=== PATIENT | female | born 1935 | race Caucasian/White ===

== ENCOUNTER 2019-07-22 07:36 | Observation (INO) | payer OTHER, MEDICARE ==
[2019-07-22] MEDS ORDERED: DIPHENHYDRAMINE 50 MG/ML VIAL ONE (07:57)
[2019-07-22] MEDS ORDERED: NA CHLORIDE 0.9% 1,000 ML ONE (07:57)
[2019-07-22] MEDS ORDERED: ONDANSETRON 4 MG/2 ML VIAL ONE (07:57)
[2019-07-22] MEDS ORDERED: MECLIZINE HCL 12.5 MG TAB ONE (07:57)
[2019-07-22 08:13] LABS: Hematocrit 36.8 % (36.0-45.0); RBC Red Blood Cell Count 3.76 M/uL (3.86-4.86)
[2019-07-22 08:54] LABS: Urine Blood NEGATIVE (NEG); Urine Glucose 2+ (NEG); Urine Protein NEGATIVE (NEG); Urine Specific Gravity 1.015 (1.005-1.030); Urine pH 7.5 (5.0-7.0)
[2019-07-22 09:07] LABS: ALT/SGPT 17 U/L (12-78); AST/SGOT 20 U/L (15-37); Alkaline Phosphatase 51 U/L (45-117); BUN Blood Urea Nitrogen 20 mg/dL (7-18); Bicarbonate 22 mmol/L (21-32); Bilirubin Total 0.5 mg/dL (0.2-1.0); Glucose Level 278 mg/dL (74-106); Lipase 20 U/L (73-393); Potassium 3.3 mmol/L (3.5-5.1); Protein, Total 6.1 g/dL (6.4-8.2); Sodium Level 137 mmol/L (136-145)
--- NOTE | 2019-07-22 09:44 | RAD REPORT ---
EXAM DESCRIPTION: CT - Head Brain Wo Cont - 07/22/2019 9:36 am CLINICAL HISTORY: DIZZINESS COMPARISON: Head Brain Wo Cont dated 12/23/2016; Chest Single View dated 12/31/2016 TECHNIQUE: Axial 5 mm thick images of the head were obtained without IV contrast. All CT scans are performed using dose optimization technique as appropriate and may include automated exposure control or mA/KV adjustment according to patient size. FINDINGS: No intracranial hemorrhage, mass, edema or shift of mid-line structures. No acute infarcti on changes seen. No cortical edema or sulcal effacement. Patient has mild for age atrophy and chronic ischemic change. Ventricles are in proportion to volume loss. Mastoid air cells are clear. Partially imaged right maxillary sinus is completely opacified. There is mucosal thickening or fluid changes in the sphenoid sinus. No acute bony findings. IMPRESSION: Mild atrophy and chronic ischemic change with no acute intracranial finding identifiable . Chronic ischemic change can mask nonhemorrhagic acute CVA. Follow-up MR imaging can be performed as c linical findings warrant. Complete opacification of the right maxillary sinus with mucosal thickening and possible fluid in the left side of the sphenoid sinus.
--- NOTE | 2019-07-22 14:10 | ER ---
Nurse's Notes [facility] Name: Mona Berg Age: 83 yrs Sex: Female : 1935 Arrival Date: 07/22/2019 Time: 07:39 Bed 7 Private MD: Diagnosis: Dehydration Presentation: 07/22 07:32 Presenting complaint: EMS states: dizziness started this morning around 0500 after sv getting up and going to the bathroom. c/o left occipital headache that started 2 days ago, goes away with Aleve. BP 156/76 [id number]-348. Transition of care: patient was not received from another setting of care. Onset of symptoms was July 22, 2019. Risk Assessment: Do you want to hurt yourself or someone else? Patient reports no desire to harm self or others. Initial Sepsis Screen: Does the patient meet any 2 criteria? No. Patient's initial sepsis screen is negative. Does the patient have a suspected source of infection? No. Patient's initial sepsis screen is negative. Care prior to arrival: Medication(s) given: Normal saline infusion, IV initiated. 20 GA, in the right hand, Glucose check: 348. 07:32 Method Of Arrival: EMS: [facility] sv 07:32 Acuity: ZARIA 2 sv 07:35 Presenting complaint: Patient states: that she had rolled over on to her other side sv while in bed and immediately started feeling dizzy, she had to urinate and got up to the bathroom and was still dizzy, got back in bed and had her call 911 for assistance. Triage Assessment: 07:32 Headache History: The patient has had previous headaches and this one is similar to previous episodes. General: Appears in no apparent distress. uncomfortable, slender, well developed, Behavior is calm, cooperative, appropriate for age. Pain: Denies pain. Neuro: Level of Consciousness is awake, alert, obeys commands, Oriented to person, place, time, situation, Roll Inspector are equal bilaterally Moves all extremities. Full function Speech is normal, Facial symmetry appears normal, Facial symmetry: tongue is midline, Pupils are PERRLA, Reports dizziness, Denies weakness blurred vision numbness. Cardiovascular: Patient's skin is warm and dry. Pulses are palpable in right radial artery and left radial artery Rhythm is sinus rhythm. Respiratory: Airway is patent Respiratory effort is even, unlabored, Respiratory pattern is regular, symmetrical. Derm: Skin is pink, warm \T\ dry. Musculoskeletal: Range of motion: intact in all extremities. Historical: - Allergies: :44 No Known Allergies; sv - Home Meds: 08:30 metformin 1,000 mg oral tab 2 times per day [Active]; metoprolol succinate 50 mg oral sv Tb24 1 tab twice a day [Active]; amlodipine 10 mg oral tab nightly [Active]; Protonix 40 mg Oral TbEC 1 tab once daily [Active]; levothyroxine 150 mcg oral tab once daily [Active]; Klor-Con 10 8mEq PRN Oral daily prn [Active]; Tradjenta 5 mg oral tab 1 tab once daily [Active]; Zenpep 10,000-34,000 -55,000 unit oral cpDR 1 cap 3 times per day [Active]; multivitamin oral cap daily [Active]; B-Complex oral oral [Active]; magnesium oxide 500 mg Oral cap [Active]; allopurinol 100 mg Oral tab 1 tab once daily [Active]; Zofran (as hydrochloride) 8 mg Oral tab Q8H prn [Active]; glimepiride 1 mg Oral tab 1 tab once daily [Active]; diphenoxylate-atropine 2.5-0.025 mg Oral tab Q6H prn diarrhea [Active]; - PMHx: :44 Diabetes - NIDDM; High Cholesterol; Hypertension; Hypothyroidism; stomach CA; sv - PSHx: :44 Cholecystectomy; Appendectomy; Hysterectomy; back sx; Stomach sx-had 3/4 stomach sv removed; - Immunization history:: Flu vaccine is up to date. - Coronavirus screen:: The patient has NOT traveled to [place], [place], or [place] in the past 14 days. Proceed with normal triage process as indicated. The patient has NOT had contact with known/suspected case of Coronavirus? Proceed with normal triage procedures. - Social history:: Patient/guardian denies using alcohol, street drugs, The patient lives with family, Smoking status: Patient reports use of chewing tobacco. - Family history:: not pertinent. - Ebola Screening: : No symptoms or risks identified at this time. Screenin:44 Abuse screen: Denies threats or abuse. Denies injuries from another. Nutritional sv screening: No deficits noted. Tuberculosis screening: No symptoms or risk factors identified. Fall Risk None identified. Assessment: 08:10 Reassessment: Patient appears in no apparent distress at this time. No changes from sv previously documented assessment. Patient and/or family updated on plan of care and expected duration. Pain level reassessed. Patient is alert, oriented x 3, equal unlabored respirations, skin warm/dry/pink. 09:30 Reassessment: Patient appears in no apparent distress at this time. No changes from sv previously documented assessment. Patient and/or family updated on plan of care and expected duration. Pain level reassessed. Patient is alert, oriented x 3, equal unlabored respirations, skin warm/dry/pink. 11:21 Reassessment: Patient appears in no apparent distress at this time. Patient and/or sv family updated on plan of care and expected duration. Pain level reassessed. Patient is alert, oriented x 3, equal unlabored respirations, skin warm/dry/pink. Pt assisted up to the BSC and is c/o dizziness. 12:30 Reassessment: Patient appears in no apparent distress at this time. Patient and/or sv family updated on plan of care and expected duration. Pain level reassessed. Patient is alert, oriented x 3, equal unlabored respirations, skin warm/dry/pink. Assisted up to the BSC. 14:00 Reassessment: Patient appears in no apparent distress at this time. Patient and/or sv family updated on plan of care and expected duration. Pain level reassessed. Patient is alert, oriented x 3, equal unlabored respirations, skin warm/dry/pink. 14:17 Reassessment: Lunch tray given to pt. sv 15:46 Reassessment: Attempted to call report, nurse to call back. sv 16:00 Reassessment: Dr Reynolds at the bedside. sv Vital Signs: 07:37 BP 185 / 85; Pulse 64; Resp 12; Temp 96.8; Pulse Ox 98% ; Weight 54.43 kg; Height 5 ft. sv 2 in. (157.48 cm); Pain 0/10; 08:21 BP 169 / 82; Pulse 63; Resp 12; Pulse Ox 99% ; sv 09:03 BP 140 / 63; Pulse 61; Resp 15; Pulse Ox 98% ; sv 09:43 BP 138 / 68; Pulse 63; Resp 16; Pulse Ox 96% ; sv 10:24 BP 135 / 69; Pulse 59; Resp 14; Pulse Ox 95% ; sv 11:03 BP 136 / 71; Pulse 63; Resp 18; Pulse Ox 95% ; sv 11:45 BP 151 / 76; Pulse 63; Resp 15; Pulse Ox 97% ; sv 12:30 BP 161 / 77; Pulse 68; Resp 17; Pulse Ox 97% ; sv 13:00 BP 176 / 94; Pulse 74; Resp 14; Pulse Ox 99% ; sv 13:49 BP 155 / 79; Pulse 68; Resp 13; Pulse Ox 99% ; sv 14:30 BP 145 / 82; Pulse 76; Resp 15; Pulse Ox 100% ; sv 14:30 BP 130 / 86; Pulse 74; Resp 15; Pulse Ox 100% ; sv 15:00 BP 128 / 69; Pulse 63; Resp 13; Pulse Ox 98% ; sv 16:06 BP 136 / 70; Pulse 69; Resp 18; Temp 97; Pulse Ox 99% ; sv 07:37 Body Mass Index 21.95 (54.43 kg, 157.48 cm) sv NIH Stroke Scale Scores: 07:35 NIHSS Score: 0 sv ED Course: 07:32 Maintain EMS IV. Dressing intact. Site clean \T\ dry. Gauge \T\ site: 20G R hand. sv 07:35 Patient has correct armband on for positive identification. Placed in gown. Bed in low sv position. Call light in reach. Side rails up X2. cafeteria monitor on. Pulse ox on. NIBP on. Door closed. Warm blanket given. Head of bed elevated. 07:39 Patient arrived in ED. iw 07:40 Valentine Yo, MARISA is Primary Nurse. sv 07:42 Triage completed. sv 07:43 Paramjit Guillory MD is Attending Physician. ma2 07:44 Arm band placed on. sv 07:50 ED physician to see patient. sv 08:00 Initial lab(s) drawn, by me, sent to lab. sv 08:10 Awaiting lab results, Awaiting CT Scan. sv 08:59 EKG done, by emergency spill response technician. reviewed by Paramjit Guillory MD. at1 09:39 CT Head Brain wo Cont In Process Unspecified. EDMS 14:06 Curly Reynolds MD is Hospitalizing Provider. ma2 14:21 Awaiting bed assignment, Awaiting: admission orders from Dr Reynolds. sv 16:06 No provider procedures requiring assistance completed. Patient admitted, IV remains in sv place. intact. Administered Medications: 08:05 Drug: NS 0.9% 1000 ml Route: IV; Rate: 1 bolus; Site: right hand; sv 09:00 Follow up: Response: No adverse reaction; IV Status: Completed infusion; IV Intake: sv 1000ml 08:05 Drug: Benadryl 25 mg Route: IVP; Site: right hand; sv 08:50 Follow up: Response: No adverse reaction sv 08:07 Drug: Zofran 4 mg Route: IVP; Site: right hand; sv 08:30 Follow up: Response: No adverse reaction sv 08:07 CANCELLED (Physician Discretion): Benadryl 50 mg IVP once sv 08:08 Drug: Meclizine 50 mg Route: PO; sv 08:50 Follow up: Response: No adverse reaction sv Intake: 09:00 IV: 1000ml; Total: 1000ml. Outcome: 14:05 Discharge ordered by . ma2 14:09 Decision to Hospitalize by Provider. ma2 16:06 Admitted to Tele accompanied by tech, via wheelchair, with chart, Report called to Iris CUNNINGHAM 16:06 Condition: stable 16:06 Instructed on the need for admit. 16:25 Patient left the ED. NIH Stroke Scale - NIH Stroke Score Date: 07/22/2019 Time: 07:35 Total Score = 0 1a. Level of Consciousness (LOC) - 0(Alert) 1b. Level of Consciousness (LOC) (Year \T\ Age) - 0(Both) 1c. LOC Commands (Open \T\ Closes Eyes/Ladle Patcher) - 0(Both) 2. Best Gaze (Lateral Gaze Paresis) - 0(Normal) 3. Visual Field Loss - 0(No visual loss) 4. Facial Palsy - 0(Normal) 5a. Left Arm: Motor (10-second hold) - 0(No drift) 5b. Right Arm: Motor (10-second hold) - 0(No drift) 6a. Left Leg: Motor (5-second hold - always test supine) - 0(No drift) 6b. Right Leg: Motor (5-second hold - always test supine) - 0(No drift) 7. Limb Ataxia (finger/nose \T\ heel/garcia - test with eyes open) - 0(Absent) 8. Sensory Loss (pinprick arms/legs/face) - 0(Normal) 9. Best Language: Aphasia (description/naming/reading) - 0(No aphasia) 10. Dysarthria (speech clarity - read or repeat words) - 0(Normal) 11. Extinction and Inattention (visual/tactile/auditory/spatial/personal) - 0(No abnormality) Initials: sv Signatures: Dispatcher [employer] Valentine Blackman RN RN sv Williams, Irene, RN RN iw Lashawn Lim, research administrator EKG Tat1 Paramjit Guillory MD MD ma2 Corrections: (The following items were deleted from the chart) 09:45 09:43 Pulse 63bpm; Resp 16bpm; Pulse Ox 96%; sv sv 16:07 16:06 BP 136 / 0; Pulse 69bpm; Resp 18bpm; Pulse Ox 99%; Temp 97F; sv sv
--- NOTE | 2019-07-22 14:10 | EDPHYS ---
Physician Documentation [facility] Name: Mona Berg Age: 83 yrs Sex: Female : 1935 Arrival Date: 07/22/2019 Time: 07:39 Bed 7 Private MD: ED Physician Paramjit Guillory HPI: 07/22 10:13 This 83 yrs old Female presents to ER via EMS with complaints of Dizziness, ma2 Headache. 10:13 Onset: The symptoms/episode began/occurred gradually, 1 day(s) ago. Associated signs ma2 and symptoms: Pertinent negatives: ataxia, chest pain, confusion, diaphoresis, seizure. Severity of symptoms: At their worst the symptoms were mild in the emergency department the symptoms are unchanged. The patient has not experienced similar symptoms in the past. did not eat or drink last 24 hrs because she had dental work . Historical: - Allergies: 07:44 No Known Allergies; sv - Home Meds: 08:30 metformin 1,000 mg oral tab 2 times per day [Active]; metoprolol succinate 50 mg oral sv Tb24 1 tab twice a day [Active]; amlodipine 10 mg oral tab nightly [Active]; Protonix 40 mg Oral TbEC 1 tab once daily [Active]; levothyroxine 150 mcg oral tab once daily [Active]; Klor-Con 10 8mEq PRN Oral daily prn [Active]; Tradjenta 5 mg oral tab 1 tab once daily [Active]; Zenpep 10,000-34,000 -55,000 unit oral cpDR 1 cap 3 times per day [Active]; multivitamin oral cap daily [Active]; B-Complex oral oral [Active]; magnesium oxide 500 mg Oral cap [Active]; allopurinol 100 mg Oral tab 1 tab once daily [Active]; Zofran (as hydrochloride) 8 mg Oral tab Q8H prn [Active]; glimepiride 1 mg Oral tab 1 tab once daily [Active]; diphenoxylate-atropine 2.5-0.025 mg Oral tab Q6H prn diarrhea [Active]; - PMHx: 07:44 Diabetes - NIDDM; High Cholesterol; Hypertension; Hypothyroidism; stomach CA; sv - PSHx: 07:44 Cholecystectomy; Appendectomy; Hysterectomy; back sx; Stomach sx-had 3/4 stomach sv removed; - Immunization history:: Flu vaccine is up to date. - Coronavirus screen:: The patient has NOT traveled to [place], [place], or [place] in the past 14 days. Proceed with normal triage process as indicated. The patient has NOT had contact with known/suspected case of Coronavirus? Proceed with normal triage procedures. - Social history:: Patient/guardian denies using alcohol, street drugs, The patient lives with family, Smoking status: Patient reports use of chewing tobacco. - Family history:: not pertinent. - Ebola Screening: : No symptoms or risks identified at this time. ROS: 10:13 Constitutional: Negative for fever, chills, and weight loss. ma2 10:13 All other systems are negative. Exam: 10:13 Constitutional: This is a well developed, well nourished patient who is awake, alert, ma2 and in no acute distress. Head/Face: Normocephalic, atraumatic. Eyes: Pupils equal round and reactive to light, extra-ocular motions intact. Lids and lashes normal. Conjunctiva and sclera are non-icteric and not injected. Cornea within normal limits. Periorbital areas with no swelling, redness, or edema. ENT: Nares patent. No nasal discharge, no septal abnormalities noted. Tympanic membranes are normal and external auditory canals are clear. Oropharynx with no redness, swelling, or masses, exudates, or evidence of obstruction, uvula midline. Mucous membranes moist. Neck: Trachea midline, no thyromegaly or masses palpated, and no cervical lymphadenopathy. Supple, full range of motion without nuchal rigidity, or vertebral point tenderness. No Meningismus. Chest/axilla: Normal chest wall appearance and motion. Nontender with no deformity. No lesions are appreciated. Cardiovascular: Regular rate and rhythm with a normal S1 and S2. No gallops, murmurs, or rubs. Normal PMI, no JVD. No pulse deficits. Respiratory: Lungs have equal breath sounds bilaterally, clear to auscultation and percussion. No rales, rhonchi or wheezes noted. No increased work of breathing, no retractions or nasal flaring. Abdomen/GI: Soft, non-tender, with normal bowel sounds. No distension or tympany. No guarding or rebound. No evidence of tenderness throughout. Back: No spinal tenderness. No costovertebral tenderness. Full range of motion. Female : Normal external genitalia. Skin: Warm, dry with normal turgor. Normal color with no rashes, no lesions, and no evidence of cellulitis. MS/ Extremity: Pulses equal, no cyanosis. Neurovascular intact. Full, normal range of motion. Neuro: Awake and alert, GCS 15, oriented to person, place, time, and situation. Cranial nerves II-XII grossly intact. Motor strength 5/5 in all extremities. Sensory grossly intact. Cerebellar exam normal. Normal gait. Vital Signs: 07:37 BP 185 / 85; Pulse 64; Resp 12; Temp 96.8; Pulse Ox 98% ; Weight 54.43 kg; Height 5 ft. sv 2 in. (157.48 cm); Pain 0/10; 08:21 BP 169 / 82; Pulse 63; Resp 12; Pulse Ox 99% ; sv 09:03 BP 140 / 63; Pulse 61; Resp 15; Pulse Ox 98% ; sv 09:43 BP 138 / 68; Pulse 63; Resp 16; Pulse Ox 96% ; sv 10:24 BP 135 / 69; Pulse 59; Resp 14; Pulse Ox 95% ; sv 11:03 BP 136 / 71; Pulse 63; Resp 18; Pulse Ox 95% ; sv 11:45 BP 151 / 76; Pulse 63; Resp 15; Pulse Ox 97% ; sv 12:30 BP 161 / 77; Pulse 68; Resp 17; Pulse Ox 97% ; sv 13:00 BP 176 / 94; Pulse 74; Resp 14; Pulse Ox 99% ; sv 13:49 BP 155 / 79; Pulse 68; Resp 13; Pulse Ox 99% ; sv 14:30 BP 145 / 82; Pulse 76; Resp 15; Pulse Ox 100% ; sv 14:30 BP 130 / 86; Pulse 74; Resp 15; Pulse Ox 100% ; sv 15:00 BP 128 / 69; Pulse 63; Resp 13; Pulse Ox 98% ; sv 16:06 BP 136 / 70; Pulse 69; Resp 18; Temp 97; Pulse Ox 99% ; sv 07:37 Body Mass Index 21.95 (54.43 kg, 157.48 cm) sv NIH Stroke Scale Scores: 07:35 NIHSS Score: 0 sv MDM: 07:43 Patient medically screened. ma2 10:13 Differential diagnosis: cardiac arrhythmia, generalized weakness, head injury, ma2 hypovolemia, sepsis, syncope, TIA, vertigo. Data reviewed: vital signs, nurses notes. Counseling: I had a detailed discussion with the patient and/or guardian regarding: the historical points, exam findings, and any diagnostic results supporting the discharge/admit diagnosis, the presence of at least one elevated blood pressure reading (>120/80) during this emergency department visit, the need for outpatient follow up. 10:15 Response to treatment: the patient's symptoms have resolved after treatment. wi2 14:04 ED course: patient still feels lightheaded unable to walk. [facility] 07/22 07:47 Order name: CBC w/o diff; Complete Time: 08:17 [facility] 07/22 07:47 Order name: CMP; Complete Time: 09:27 [facility] 07/22 07:47 Order name: Lipase; Complete Time: 09:27 [facility] 07/22 08:23 Order name: Urine Dipstick--Ancillary (enter results); Complete Time: 09:27 07/22 15:10 Order name: Magnesium [facility] 07/22 15:10 Order name: CBC with Automated Diff [facility]TN 07/22 07:47 Order name: CT Head Brain wo Cont; Complete Time: 10:12 [facility] 07/22 15:10 Order name: CBC with Automated Diff [facility] 07/22 15:10 Order name: Comprehensive Metabolic Panel [facility] 07/22 15:10 Order name: Comprehensive Metabolic Panel [facility] 07/22 16:24 Order name: Glucose, Ancillary Testing [facility] 07/22 07:47 Order name: Urine Dipstick-Ancillary (obtain specimen); Complete Time: 08:22 [facility] 07/22 08:17 Order name: EKG - Nurse/Tech; Complete Time: 09:46 wi2 07/22 08:22 Order name: EKG; Complete Time: 08:22 07/22 08:25 Order name: Labs - recollect needed: chemistries recollect please; Complete Time: 08:50 eb 07/22 13:59 Order name: Diet Ada 1800 [place]; Complete Time: 14:00 07/22 15:10 Order name: CONS Pharmacy Consult EDMS Administered Medications: 08:05 Drug: NS 0.9% 1000 ml Route: IV; Rate: 1 bolus; Site: right hand; sv 09:00 Follow up: Response: No adverse reaction; IV Status: Completed infusion; IV Intake: sv 1000ml 08:05 Drug: Benadryl 25 mg Route: IVP; Site: right hand; sv 08:50 Follow up: Response: No adverse reaction sv 08:07 Drug: Zofran 4 mg Route: IVP; Site: right hand; sv 08:30 Follow up: Response: No adverse reaction sv 08:07 CANCELLED (Physician Discretion): Benadryl 50 mg IVP once sv 08:08 Drug: Meclizine 50 mg Route: PO; sv 08:50 Follow up: Response: No adverse reaction sv Disposition: 07/22/19 14:09 Hospitalization ordered by Curly Reynolds for Observation. Preliminary diagnosis is Dehydration. - Bed requested for Telemetry/MedSurg (observation). - Status is Observation. sv - Condition is Stable. - Problem is new. - Symptoms are unchanged. NIH Stroke Scale - NIH Stroke Score Date: 07/22/2019 Time: 07:35 Total Score = 0 1a. Level of Consciousness (LOC) - 0(Alert) 1b. Level of Consciousness (LOC) (Year \T\ Age) - 0(Both) 1c. LOC Commands (Open \T\ Closes Eyes/Bioengineer) - 0(Both) 2. Best Gaze (Lateral Gaze Paresis) - 0(Normal) 3. Visual Field Loss - 0(No visual loss) 4. Facial Palsy - 0(Normal) 5a. Left Arm: Motor (10-second hold) - 0(No drift) 5b. Right Arm: Motor (10-second hold) - 0(No drift) 6a. Left Leg: Motor (5-second hold - always test supine) - 0(No drift) 6b. Right Leg: Motor (5-second hold - always test supine) - 0(No drift) 7. Limb Ataxia (finger/nose \T\ heel/garcia - test with eyes open) - 0(Absent) 8. Sensory Loss (pinprick arms/legs/face) - 0(Normal) 9. Best Language: Aphasia (description/naming/reading) - 0(No aphasia) 10. Dysarthria (speech clarity - read or repeat words) - 0(Normal) 11. Extinction and Inattention (visual/tactile/auditory/spatial/personal) - 0(No abnormality) Initials: sv Signatures: Dispatcher [employer] Valentine Blackman RN RN Paramjit Guillory MD MD wi2 Kaila Kaplan Corrections: (The following items were deleted from the chart) 08:07 07:47 Benadryl 50 mg IVP once ordered. ma2 sv 08:07 08:07 Benadryl 50 mg IVP once ordered. sv sv 14:06 14:05 07/22/2019 14:05 Discharged to Home. Impression: Dehydration. Condition ma2 is Stable. Discharge Instructions: Dehydration, Adult. Prescriptions for Meclizine 25 mg Oral Tablet - take 1 tablet by ORAL route every 8 hours As needed; 30 tablet. and Forms are Medication Reconciliation Form, Thank You Letter, Antibiotic Education, Prescription Opioid Use. Follow up: Private Physician; When: Tomorrow; Reason: Continuance of care. wi2 14:44 14:09 Hospitalization Ordered by Curly Reynolds MD for Observation. Preliminary eb diagnosis is Dehydration. Bed requested for Telemetry/MedSurg (observation). Status is Observation. Condition is Stable. Problem is new. Symptoms are unchanged. wi2 15:43 14:44 07/22/2019 14:09 Hospitalization Ordered by Curly Reynolds MD for eb Observation. Preliminary diagnosis is Dehydration. Bed requested for Telemetry/MedSurg (observation). Status is Observation. Condition is Stable. Problem is new. Symptoms are unchanged. eb 16:25 15:43 07/22/2019 14:09 Hospitalization Ordered by Curly Reynolds MD for sv Observation. Preliminary diagnosis is Dehydration. Bed requested for Telemetry/MedSurg (observation). Status is Observation. Condition is Stable. Problem is new. Symptoms are unchanged. eb
[2019-07-22] MEDS ORDERED: ONDANSETRON 4 MG/2 ML VIAL IV PRN (15:01)
[2019-07-22] MEDS ORDERED: ACETAMINOPHEN 500 MG TAB PO PRN (15:01)
[2019-07-22] MEDS ORDERED: MORPHINE 2 MG/ML SYR IV PRN (15:01)
[2019-07-22] MEDS ORDERED: ALBUTEROL 2.5 MG/3 ML NEB SOL NEB PRN ×2 (15:01→15:04)
[2019-07-22] MEDS ORDERED: guaiFENesin 100 MG/5 ML UCUP PO PRN (15:04)
[2019-07-22] MEDS ORDERED: HYDRALAZINE HCL 20 MG/ML VIAL IV PRN (15:04)
[2019-07-22] MEDS ORDERED: POTASSIUM 25 MEQ EFFERV TAB PO ONE (15:04)
--- NOTE | 2019-07-22 15:08 | EKG ---
Test Date: 2019-07-22 Test Time: 08:51:47 Content Engineer: MELVA MEASUREMENT RESULTS: Intervals: Rate: 59 SD: 202 QRSD: 84 QT: 452 QTc: 447 Kirwin: P: 18 SD: 202 QRS: -19 T: 31 INTERPRETIVE STATEMENTS: Sinus bradycardia Voltage criteria for left ventricular hypertrophy Abnormal ECG Compared to ECG 12/31/2016 09:50:14 Sinus rhythm no longer present Left-axis deviation no longer present Myocardial infarct finding no longer present Electronically Signed On 07-22-19 15:06:53 HEALTH INFORMATION MANAGEMENT DIRECTOR by Tomy Clark
--- NOTE | 2019-07-22 15:37 | P.HP ---
Certification for Inpatient Patient admitted to: Observation With expected LOS: <2 Midnights Patient will require the following post-hospital care: Home Health Services Practitioner: I am a practitioner with admitting privileges, knowledge of patient current condition, hospital course, and medical plan of care. Services: Services provided to patient in accordance with Admission requirements found in Title 42 Section 412.3 of the Code of Federal Regulations Patient History Date of Service: 07/22/19 Reason for admission: Dizziness and vertigo History of Present Illness: Patient with history of HTN, DM, hyperlipidemia,Hx of gastric cacner s/p partial gastrectomy , with subsequent chronic malabsroption , chronic Hypomagnesmei and hypokaleia admitted after presenting for headache which was frontal region and improved after taking Aleve. She later developed dizziness with feelings of vertigo which continues to persist. She states home blood pressure at time of onset of symptoms was in the 150 systolic. On presentation in the ED blood pressure was in the 190s but subsequently improved to the 150s to 170s now. Dizziness continued to persist despite IV fluid in the ER. She denies any chest pain. She denies any cough or shortness of breath. She denies any recent dysuria or nocturia. Her work show low potssium at 3.3 . She admit to mag use as prn at home and 2x a week kcl use . Allergies No Known Allergies Allergy (Verified 12/23/16 22:21) Home medications list reviewed: No Home Medications: Amlodipine Besylate 5 mg PO DAILY 12/24/16 Magnesium Chloride [Slow-Mag*] 32 mg PO BEDTIME 12/24/16 Metformin HCl [Glucophage*] 500 mg PO BID 12/24/16 Metoprolol Tartrate [Lopressor*] 50 mg PO DAILY 12/24/16 Ondansetron HCl [Zofran] 8 mg PO Q8H PRN 12/24/16 Potassium Cl [Klor-Con 8] 8 meq PO DAILY 12/24/16 Folic Acid/B Complex C No.17 [Virt-Asael Plus Tablet] 5 mg PO DAILY #30 tablet Glucerna Shake [Glucerna*] 237 ml PO BID can 12/26/16 Pantoprazole [Protonix Tab*] 40 mg PO DAILYAC #30 tab 12/26/16 Levothyroxine [Synthroid*] 0.05 mg PO [id number] #30 01/02/17 - Past Medical/Surgical History Diabetic: Yes -: NIDDM -: HYPERLIPIDEMIA -: HTN -: HYPOTHYROIDISM -: STOMACH CX -: STOMACH SX -: HYSTERECTOMY -: APPENDECTOMY -: CHOLECYSTECTOMY -: KNEE SX -: BACK SX - Family History Father -: Heart disease, Hypertension Mother -: Heart disease, Stroke - Social History Smoking Status: Never smoker Alcohol use: No CD- Drugs: No Caffeine use: Yes Review of Systems General: Weakness, Malaise Eyes: Unremarkable ENT: Unremarkable Respiratory: Unremarkable Cardiovascular: Unremarkable Gastrointestinal: Nausea Genitourinary: Unremarkable Musculoskeletal: Unremarkable Integumentary: Unremarkable Neurological: Unremarkable Physical Examination - Physical Exam General: Alert, In no apparent distress, Oriented x3 HEENT: Atraumatic, Normocephalic, PERRLA Neck: Supple, 2+ carotid pulse no bruit Respiratory: Clear to auscultation bilaterally, Normal air movement Cardiovascular: Normal pulses, Regular rate/rhythm, Normal S1 S2 Gastrointestinal: Normal bowel sounds, Soft and benign, Non-distended Musculoskeletal: No clubbing, No swelling Neurological: Normal speech, Normal strength at 5/5 x4 extr - Studies Laboratory Data (last 24 hrs) 07/22/19 08:35: Sodium 137, Potassium 3.3 L, BUN 20 H, Creatinine 0.60, Glucose 278 H, Total Bilirubin 0.5, AST 20, ALT 17, Alkaline Phosphatase 51, Lipase 20 L 07/22/19 08:00: WBC 5.6, Hgb 11.9 L, Hct 36.8, Plt Count 224 Imagings Data: IMPRESSION: Mild atrophy and chronic ischemic change with no acute intracranial finding identifiable. Chronic ischemic change can mask nonhemorrhagic acute CVA. Follow-up MR imaging can be performed as clinical findings warrant. Complete opacification of the right maxillary sinus with mucosal thickening and possible fluid in the left side of the sphenoid sinus. Assessment and Plan - Problems (Diagnosis) (1) Dehydration Onset Date: 12/24/16 Current Visit: No Status: Acute (2) DM2 (diabetes mellitus, type 2) Onset Date: 01/01/17 Current Visit: No Status: Chronic Qualifiers: (3) HTN (hypertension) Onset Date: 01/01/17 Current Visit: No Status: Chronic Qualifiers: (4) Hypothyroidism Onset Date: 01/01/17 Current Visit: No Status: Chronic Qualifiers: (5) Hypomagnesemia syndrome Current Visit: Yes Status: Acute - Advance Directives Does patient have a Living Will: No Does patient have a Durable POA for Healthcare: No - Code Status/Comfort Care Code Status: Full Code Physician Review: Patient Assessed, Agree with Above Assessment and Plan Physician Review Additional Text: Dizziness- may be due to electrolyte disorder with hypomagnesmeia and hypokalemia - will obtain carotid US but low likelihood of any yield - will replte electrolytes and follow -will start IV fluid with NS and potassium - monitor -obtain TSH - obtain flu swab Hypomagnesmeia - may be due to malabsorption and metformin use - will replete with IV - hold metformin HTN -uncontrolled , / contributing to headaches - follow with better BP control -Restart home meds-Toprol/Norvasc -start hydralzine prn for now DM -elevated , on meftormin and tradjenta as well as prn amryl 1 mg -Since metformin induced hypomagnesmeia possibility -advised to stop metformin -start daily amaryl and follow - start start insulin sliding scale DVT prop- heparin sc Hypokalemia- will replete -
[2019-07-22] MEDS ORDERED: NS KCL 20MEQ 20 MEQ/1,000 ML BAG IV SCH (16:00)
[2019-07-22] MEDS: INSULIN -REGULAR HUMAN 50 UNIT/0.5 ML ML SQ SCH ×2 (16:42→20:25)
[2019-07-22] MEDS: GLIMEPIRIDE 2 MG TABLET PO SCH (17:10)
[2019-07-22 17:59] VITALS: BMI 21.9
--- NOTE | 2019-07-22 18:35 | RAD REPORT ---
EXAM DESCRIPTION: - CP - 07/22/2019 6:17 pm CLINICAL HISTORY: cva Headache, drowsiness COMPARISON: <Comparisons> TECHNIQUE: Real-time sonographic evaluation of both carotid systems was performed. Doppler interroga tion was performed with waveform tracing bilaterally. FINDINGS: Normal high resistance waveforms are noted in both external carotid arteries. The common c arotid arteries and internal carotid arteries show normal low resistance waveforms. Mild hard plaquing is seen in both carotid bulbs, slightly more pronounced on the right. Peak systoli c and end diastolic velocity values and the ICA/CCA ratios are in the non-hemodynamically significant range. Antegrade flow seen in both vertebral arteries. IMPRESSION: Mild hard plaquing in both carotid bulbs, slightly more pronounced on the right. No evidence of a hemodynamically significant stenosis.
[2019-07-22] MEDS: HEPARIN 5000 UNIT/ML 1 ML VIAL SQ SCH (20:24)
[2019-07-22] MEDS: MAGNESIUM OXIDE 400 MG TAB PO SCH (20:24)
[2019-07-22] MEDS: METFORMIN HCL 500 MG TAB PO SCH (20:24)
[2019-07-22] MEDS: AMYLASE/LIPASE/PROTEASE CAP PO SCH (20:24)
[2019-07-22] MEDS ORDERED: MAGNESIUM CHLORIDE 64 MG TAB PO SCH (21:00)
[2019-07-23] MEDS ORDERED: LEVOTHYROXINE SOD 0.05 MG TABLET PO SCH (06:00)
[2019-07-23] MEDS ORDERED: PANTOPRAZOLE 40MG TABLET PO SCH (06:30)
[2019-07-23 06:42] LABS: Absolute Lymphocytes (CBC) 0.6 K/uL (0.7-4.9); Basophils % 0.8 % (0-1.3); Hematocrit 34.3 % (36.0-45.0); Lymphocytes % 12.3 % (15.3-44.8); MPV 9.8 fL (7.6-11.3); RBC Red Blood Cell Count 3.45 M/uL (3.86-4.86)
[2019-07-23 06:57] LABS: Albumin 3.1 g/dL (3.4-5.0); Bilirubin Total 0.5 mg/dL (0.2-1.0); Magnesium 1.7 mg/dL (1.8-2.4); Potassium 4.4 mmol/L (3.5-5.1); Protein, Total 6.2 g/dL (6.4-8.2)
[2019-07-23] MEDS: GLIMEPIRIDE 2 MG TABLET PO SCH (08:27)
[2019-07-23] MEDS: AMYLASE/LIPASE/PROTEASE CAP PO SCH ×2 (08:27→12:24)
[2019-07-23] MEDS: INSULIN -REGULAR HUMAN 50 UNIT/0.5 ML ML SQ SCH ×2 (08:27→12:24)
[2019-07-23] MEDS: MAGNESIUM OXIDE 400 MG TAB PO SCH (08:28)
[2019-07-23] MEDS: HEPARIN 5000 UNIT/ML 1 ML VIAL SQ SCH (08:28)
[2019-07-23] MEDS: METFORMIN HCL 500 MG TAB PO SCH (09:00)
[2019-07-23] MEDS ORDERED: AMLODIPINE 5 MG TAB PO SCH (09:00)
[2019-07-23] MEDS ORDERED: POTASSIUM CL 8 MEQ SA TAB PO SCH (09:00)
[2019-07-23] MEDS ORDERED: METOPROLOL TAR 50 MG TAB PO SCH (09:00)
[2019-07-23] MEDS ORDERED: OSELTAMIVIR 75 MG CAP PO SCH (09:00)
[2019-07-23] MEDS ORDERED: MAGNESIUM SULFATE 1 gm IVPB 1 GM/100 ML BAG IV ONE (10:17)
--- NOTE | 2019-07-23 10:18 | P.DS ---
Admission Date: 07/22/19 Discharge Date: 07/23/19 Disposition: DC HOME/HOME HEALTH CARE Discharge Condition: FAIR Reason for Admission: Dizziness and vertigo - Problems (1) Dehydration Onset Date: 12/24/16 Current Visit: No Status: Acute (2) DM2 (diabetes mellitus, type 2) Onset Date: 01/01/17 Current Visit: No Status: Chronic Qualifiers: (3) HTN (hypertension) Onset Date: 01/01/17 Current Visit: No Status: Chronic Qualifiers: (4) Hypothyroidism Onset Date: 01/01/17 Current Visit: No Status: Chronic Qualifiers: (5) Hypomagnesemia syndrome Current Visit: Yes Status: Acute Brief History of Present Illness: Patient with history of HTN, DM, hyperlipidemia,Hx of gastric cacner s/p partial gastrectomy , with subsequent chronic malabsroption , chronic Hypomagnesmei and hypokaleia admitted after presenting for headache which was frontal region and improved after taking Aleve. She later developed dizziness with feelings of vertigo which continues to persist. She states home blood pressure at time of onset of symptoms was in the 150 systolic. On presentation in the ED blood pressure was in the 190s but subsequently improved to the 150s to 170s now. Dizziness continued to persist despite IV fluid in the ER. She denies any chest pain. She denies any cough or shortness of breath. She denies any recent dysuria or nocturia. Her work show low potssium at 3.3 . She admit to mag use as prn at home and 2x a week kcl use . Hospital Course: Patient with past medical history of gastric surgery, chronic hypomagnesemia admitted for weakness and dizziness. She also had influenza swab which was positive for influenza A. Patient was started on Tamiflu. She was noted with severe hypomagnesemia at 1.2. She received IV magnesium doses and have home magnesium oxide dose was increased to 400 b.i.d. magnesium oxide. Etiology of hypomagnesemia was felt to be due to malabsorption but patient was encouraged to follow up with Nephrology to rule out renal etiology. Her metformin was held as these could be contributing to low potassium and magnesium. She has been started on daily Amaryl and continue Tradjenta use for diabetic control. Her PPI was also switched to famotidine due to the low magnesium Vital Signs/Physical Exam: Temp Pulse Resp BP Pulse Ox 97.9 F 63 18 149/71 H 95 07/23/19 08:00 02 08:29 02 08:00 07/23/19 08:29 07/23/19 08:00 General: In no apparent distress, Oriented x3, Cooperative HEENT: Atraumatic, Normocephalic Neck: 2+ carotid pulse no bruit, JVD not distended Respiratory: Clear to auscultation bilaterally, Diminished (at bases ) Cardiovascular: No edema, Normal pulses, Regular rate/rhythm, Normal S1 S2 Gastrointestinal: Normal bowel sounds, Soft and benign, Non-distended Integumentary: No rashes, No breakdown Neurological: Normal speech, Sensation intact Laboratory Data at Discharge: WBC 5.1 K/uL (4.3-10.9) 07/23/19 06:29 Hgb 11.1 g/dL (12.0-15.0) L 07/23/19 06:29 Hct 34.3 % (36.0-45.0) L 07/23/19 06:29 Plt Count 237 K/uL (152-406) 07/23/19 06:29 Sodium 140 mmol/L (136-145) 07/23/19 06:29 Potassium 4.4 mmol/L (3.5-5.1) 07/23/19 06:29 BUN 16 mg/dL (7-18) 07/23/19 06:29 Creatinine 0.80 mg/dL (0.55-1.3) 07/23/19 06:29 Glucose 215 mg/dL (74-106) H 07/23/19 06:29 Magnesium 1.7 mg/dL (1.8-2.4) L D 07/23/19 06:29 Total Bilirubin 0.5 mg/dL (0.2-1.0) 07/23/19 06:29 AST 21 U/L (15-37) 07/23/19 06:29 ALT 21 U/L (12-78) 07/23/19 06:29 Alkaline Phosphatase 52 U/L (45-117) 07/23/19 06:29 Lipase 20 U/L (73-393) L 07/22/19 08:35 Home Medications: Amlodipine Besylate 5 mg PO DAILY 07/12/17 Metoprolol Tartrate [Lopressor*] 50 mg PO DAILY 12/24/16 Ondansetron HCl [Zofran] 8 mg PO Q8H PRN 12/24/16 Potassium Cl [Klor-Con 8] 8 meq PO DAILY 12/24/16 Folic Acid/B Complex C No.17 [Virt-Asael Plus Tablet] 5 mg PO DAILY #30 tablet Glucerna Shake [Glucerna*] 237 ml PO BID can 12/26/16 Levothyroxine [Synthroid*] 0.05 mg PO [id number] #30 01/02/17 Famotidine [Pepcid AC] 20 mg PO DAILY #30 tablet 07/23/19 Glimepiride [Amaryl] 1 mg PO BID #60 tablet 07/23/19 Magnesium Chloride [Slow-Mag*] 32 mg PO BID #60 tab 07/23/19 Oseltamivir [Tamiflu*] 75 mg PO BID 5 Days #15 cap 07/23/19 New Medications: Famotidine [Pepcid AC] 20 mg PO DAILY #30 tablet Glimepiride [Amaryl] 1 mg PO BID #60 tablet Magnesium Chloride [Slow-Mag*] 32 mg PO BID #60 tab Oseltamivir [Tamiflu*] 75 mg PO BID 5 Days #15 cap Patient Discharge Instructions: PCP in 1 week Diet: ADA Activity: Fall precautions Followup: Aly Yao [COURTESY - CAN ADMIT] - (please call to make an appointment. )
[2019-07-23 13:11] VITALS: O2SAT 96
[2019-07-23 14:51] VITALS: BP 130/76; TEMP 98.1
[2019-07-23] MEDS ORDERED: Magnesium Sulfate 2gm IVPB 2 G/50 ML BAG IV ONE (16:30)
--- NOTE | 2019-07-26 12:05 | P.CNS ---
Date of Consult: 07/23/19 Reason for Consult: hypomagnesemia Requesting Physician: Curly Reynolds Chief Complaint: Dizziness and vertigo History of Present Illness: 83 -year-old female patient who came to the ED with complaint of dizzy spells and headache who was found to have hypertension and electrolyte abnormalities including severe hypomagnesemia and hypokalemia. She has a medical history of diabetes, hypertension, history of gastric bypass. 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 Magnesium was significantly low and at 1.2 and potassium was 3.3. Nephrology was consulted to assist with treatment recommendations for hypomagnesemia and hypokalemia. Allergies No Known Allergies Allergy (Verified 07/22/19 16:57) Home Medications: Amlodipine Besylate 5 mg PO DAILY 12/24/16 Metoprolol Tartrate [Lopressor*] 50 mg PO DAILY 12/24/16 Ondansetron HCl [Zofran] 8 mg PO Q8H PRN 12/24/16 Potassium Cl [Klor-Con 8] 8 meq PO DAILY 12/24/16 Folic Acid/B Complex C No.17 [Virt-Asael Plus Tablet] 5 mg PO DAILY #30 tablet Glucerna Shake [Glucerna*] 237 ml PO BID can 12/26/16 Levothyroxine [Synthroid*] 0.05 mg PO [id number] #30 01/02/17 Famotidine [Pepcid AC] 20 mg PO DAILY #30 tablet 07/23/19 Glimepiride [Amaryl] 1 mg PO BID #60 tablet 07/23/19 Magnesium Chloride [Slow-Mag*] 32 mg PO BID #60 tab 07/23/19 Oseltamivir [Tamiflu*] 75 mg PO BID 5 Days #15 cap 07/23/19 - Past Medical/Surgical History Diabetic: Yes -: NIDDM -: HYPERLIPIDEMIA -: HTN -: HYPOTHYROIDISM -: STOMACH CX -: STOMACH SX -: HYSTERECTOMY -: APPENDECTOMY -: CHOLECYSTECTOMY -: KNEE SX -: BACK SX - Family History Father Medical History: Heart disease, Hypertension Mother Medical History: Heart disease, Stroke - Social History Alcohol use: No CD- Drugs: No Caffeine use: Yes Place of Residence: Home Review of Systems Unremarkable Physical Examination Temp Pulse Resp BP Pulse Ox 98.1 F 72 18 130/76 96 07/23/19 12:00 07/23/19 12:00 07/23/19 12:00 07/23/19 12:00 07/23/19 12:00 General: Alert, Oriented x3 HEENT: Atraumatic, Normocephalic, PERRLA Neck: Supple Respiratory: Clear to auscultation bilaterally Cardiovascular: Regular rate/rhythm, Normal S1 S2 Gastrointestinal: Normal bowel sounds Musculoskeletal: No clubbing, No tenderness Neurological: Normal speech, Normal strength at 5/5 x4 extr Conclusions/Impression: Episode of severe hypomagnesemia is deemed due to malabsorption from gastric bypass related issues. We have discussed aggressive oral repletion to assist with keeping her magnesium and potassium level normal. We will monitor labs as outpatient.
== END 2019-07-23 12:53 | disposition home health service (06) ==
LOC: ER 07:36 → ERHOLD 15:02 → 2ND 16:05
PROVIDERS: ADMIT Internal Medicine; ATTEND Internal Medicine
DX: J11.1 Influenza due to unidentified influenza virus with other respiratory manifestations (principal); E83.42 Hypomagnesemia; E86.0 Dehydration; E11.9 Type 2 diabetes mellitus without complications; I10 Essential (primary) hypertension; E03.9 Hypothyroidism, unspecified; Z85.028 Personal history of other malignant neoplasm of stomach; Z90.3 Acquired absence of stomach [part of]; E87.6 Hypokalemia
CPT/HCPCS: 96361; 93005; 85025; 36415; 83735 ×2; 82947 ×4; 81003; 85027; 83690; 80053 ×2; 87804 ×2; 70450; 93880; 97116; 97161; 96375; 96374; 99285; J1200; J1644 ×2; J3475; J7030; J2405 ×2; G0378 ×3; J8597